=== PATIENT | female | born 1995 | race Hispanic/Latino ===

== ENCOUNTER 2021-07-01 20:04 | Emergency (ER) | payer OTHER ==
[~2021-07-01] VITALS: Ht 144.8 cm; Wt 107.2 kg
[2021-07-01 21:05] LABS: CLARITY,URINE CLOUDY (CLEAR); COLOR,URINE YELLOW (YELLOW)
[2021-07-01 21:06] LABS: KETONES,URINE NEGATIVE (NEGATIVE); LEUKOCYTE ESTERASE ,URINE TRACE (NEGATIVE); NITRITE,URINE NEGATIVE (NEGATIVE); PROTEIN,URINE DIPSTICK NEGATIVE (NEGATIVE); URINE UROBILINOGEN 0.2 mg/dL (0.2 - 1)
[2021-07-01 21:20] LABS: BACTERIA,URINE MANY /HPF; RBC,URINE 0-5 /HPF (0-5)
[2021-07-01 21:21] LABS: EPITHELIAL CELLS,URINE MANY /LPF
== END 2021-07-01 21:00 | disposition home or self-care (01) ==
LOC: ER 20:56
DX: O26.892 Other specified pregnancy related conditions, second trimester (principal); R10.32 Left lower quadrant pain
CPT/HCPCS: 81001